=== PATIENT | female | born 2000 | race American Indian/Alaskan Native ===

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

== ENCOUNTER 2019-05-09 14:35 | Emergency (ER) | payer SELFPAY ==
[2019-05-09 15:01] VITALS: BP 117/53
--- NOTE | 2019-05-09 15:53 | Event Note ---
ED Screening Note Date of service: 05/09/19 Time: 15:49 ED Screening Note: 18 y o f presents with chest pain and upper abd pain x 2 days pt also cc of sob, mid sternal pain with radiation to lefta nd right PMH: none, unsure of asthma LMP: 05/05/19 This initial assessment/diagnostic orders/clinical plan/treatment(s) is/are subject to change based on patients health status, clinical progression and re- assessment by fellow clinical providers in the ED. Further treatment and workup at subsequent clinical providers discretion. Patient/guardian urged not to elope from the ED as their condition may be serious if not clinically assessed and managed. Initial orders include: cxr acc eval
[2019-05-09 17:05] LABS: Basophils % (Auto) 0.8 % (0.0-1.8); Eosinophils # (Auto) 0.1 K/mm3 (0.0-0.4); Eosinophils % (Auto) 1.7 % (0.0-4.3); Hematocrit 38.8 % (30.3-42.9); Hemoglobin 12.5 gm/dl (10.1-14.3); Lymphocytes # (Auto) 1.1 K/mm3 (1.2-5.4); Lymphocytes % (Auto) 31.7 % (13.4-35.0); Mean Corpuscular HGB Conc 32 % (30-34); Mean Corpuscular Volume 87 fl (79-97); Monocytes # (Auto) 0.3 K/mm3 (0.0-0.8); Monocytes % (Auto) 7.9 % (0.0-7.3); Platelet Count 195 K/mm3 (140-440); Red Blood Count 4.46 M/mm3 (3.65-5.03); Red Cell Distribution Width 12.6 % (13.2-15.2)
[2019-05-09 17:53] LABS: Alanine Aminotransferase 17 units/L (7-56); Albumin 4.8 g/dL (3.9-5); BUN/Creatinine Ratio 10; Blood Urea Nitrogen 7 mg/dL (7-17); Calcium 10.1 mg/dL (8.4-10.2); Hemolysis Index 14
[2019-05-09] MEDS ORDERED: IBUPROFEN 800 MG TAB PO ONE (19:43)
--- NOTE | 2019-05-09 20:07 | Emergency Department Report ---
ED General Adult HPI - General Chief complaint: Dyspnea/Respdistress Stated complaint: SOB/CHEST PAIN/ABD PAIN Time Seen by Provider: 05/09/19 19:31 Source: patient Mode of arrival: Ambulatory Limitations: No Limitations - History of Present Illness Initial comments: Ms. Pereira is a 18-year-old -[place] female who presents for chest wall pain right flank with intermittent shortness of breath. Patient was treatment for and August of Last year diagnoses UTI. Patient denies cough at this time there is no wheezing, there is no fever ,here is no nausea vomiting, patient denies dysuria no vaginal discharge last menstrual cycle 2 weeks ago. Patient unable to pinpoint pain. However states with inspiration only. States she's not used inhalers in 4-5 months. She denies shortness of breath at this time. Symptoms are exacerbated by activity ,movement , and deep breathing. Symptoms are relieved by rest. Onset/Timin -: days(s) Location: chest, abdomen (right flank) Radiation: non-radiation Severity scale (0 -10): 4 Quality: aching Consistency: intermittent Improves with: rest Worsens with: movement, other (inspiration ) Associated Symptoms: chest pain, shortness of breath. denies: cough, fever/chills, headaches, malaise, nausea/vomiting, rash, syncope, weakness Treatments Prior to Arrival: none - Related Data Previous Rx's Medication Instructions Recorded Last Taken Type Ibuprofen [Motrin 800 MG tab] 800 mg PO Q8HR PRN #30 tablet 05/09/19 Unknown Rx Allergies Allergy/AdvReac Type Severity Reaction Status Date / Time No Known Allergies Allergy Unverified 09/03/18 00:35 ED Review of Systems ROS: Stated complaint: SOB/CHEST PAIN/ABD PAIN Other details as noted in HPI Constitutional: denies: chills, fever Eyes: denies: eye pain, eye discharge, vision change ENT: denies: ear pain, throat pain, congestion Respiratory: shortness of breath. denies: cough, orthopnea, wheezing Cardiovascular: chest pain (right lateral chest wall pain ) Endocrine: no symptoms reported Gastrointestinal: abdominal pain (right flank pain ). denies: nausea, vomiting, diarrhea, constipation, melena Genitourinary: denies: urgency, dysuria, frequency, hematuria, discharge, dyspareunia Musculoskeletal: denies: back pain, joint swelling, arthralgia Skin: denies: rash, lesions Neurological: denies: headache, weakness, paresthesias Psychiatric: denies: anxiety, depression Hematological/Lymphatic: denies: easy bleeding, easy bruising ED Past Medical Hx - Past Medical History Previous Medical History?: No - Surgical History Past Surgical History?: No - Social History Smoking Status: Never Smoker Substance Use Type: Marijuana - Medications Home Medications: Home Medications Medication Instructions Recorded Confirmed Last Taken Type Ibuprofen [Motrin 800 MG tab] 800 mg PO Q8HR PRN #30 tablet 05/09/19 Unknown Rx ED Physical Exam - General Limitations: No Limitations General appearance: alert, in no apparent distress - Head Head exam: Present: atraumatic, normocephalic - Eye Eye exam: Present: normal appearance, PERRL, EOMI Pupils: Present: normal accommodation - ENT ENT exam: Present: normal orophraynx, mucous membranes moist, TM's normal bila terally - Neck Neck exam: Present: normal inspection, full ROM - Respiratory Respiratory exam: Present: normal lung sounds bilaterally, chest wall tenderness. Absent: respiratory distress, wheezes, rales, rhonchi, stridor - Cardiovascular Cardiovascular Exam: Present: regular rate, normal rhythm, normal heart sounds. Absent: systolic murmur, diastolic murmur, rubs, gallop - GI/Abdominal GI/Abdominal exam: Present: soft, normal bowel sounds. Absent: distended, tenderness, bruit, hernia - Rectal Rectal exam: Present: deferred - Extremities Exam Extremities exam: Present: normal inspection, normal capillary refill - Back Exam Back exam: Present: normal inspection, full ROM. Absent: tenderness, CVA tenderness (R), CVA tenderness (L), rash noted - Neurological Exam Neurological exam: Present: alert, oriented X3, CN II-XII intact, normal gait, reflexes normal. Absent: motor sensory deficit - Psychiatric Psychiatric exam: Present: normal affect, normal mood - Skin Skin exam: Present: warm, dry, intact, normal color. Absent: rash ED Course Vital Signs 05/09/19 15:00 Temperature 98.7 F Pulse Rate 76 Respiratory 16 Rate Blood Pressure 117/53 O2 Sat by Pulse 100 Oximetry ED Medical Decision Making - Lab Data Result diagrams: 05/09/19 16:45 05/09/19 16:45 Labs 01/05/09/19 05/09/19 16:45 16:45 20:19 WBC 3.6 L RBC 4.46 Hgb 12.5 Hct 38.8 MCV 87 MCH 28 MCHC 32 RDW 12.6 L Plt Count 195 Lymph % (Auto) 31.7 Green % (Auto) 7.9 H Eos % (Auto) 1.7 Baso % (Auto) 0.8 Lymph # 1.1 L Green # 0.3 Eos # 0.1 Baso # 0.0 Seg Neutrophils % 57.9 Seg Neutrophils # 2.1 Sodium 139 Potassium 4.0 Chloride 100.5 Carbon Dioxide 24 Anion Gap 19 BUN 7 Creatinine 0.7 Estimated GFR > 60 BUN/Creatinine Ratio 10 Glucose 98 Calcium 10.1 Total Bilirubin 0.50 AST 24 ALT 17 Alkaline Phosphatase 50 Total Protein 8.3 H Albumin 4.8 Albumin/Globulin Ratio 1.4 Urine Color Yellow Urine Turbidity Slightly-cloudy Urine pH 7.0 Ur Specific [place] 1.020 Urine Protein <15 mg/dl Urine Glucose (UA) Neg Urine Ketones Neg Urine Blood Neg Urine Nitrite Neg Urine Bilirubin Neg Urine Urobilinogen 2.0 Ur Leukocyte Esterase Neg Urine WBC (Auto) 2.0 Urine RBC (Auto) 3.0 U Epithel Cells (Auto) 12.0 Urine Mucus Few Urine HCG, Qual Negative This time dividable - Radiology Data Radiology results: report reviewed, image reviewed - Medical Decision Making this is flank pain , pt denies , STI symptoms ,. ua; normal, plan: ibuprofen prn pain, vital signs normal, cxr: normal, abd soft nontender, hcg neg. pt will follow up with pcp in 2-3 days. Critical care attestation.: If time is entered above; I have spent that time in minutes in the direct care of this critically ill patient, excluding procedure time. ED Disposition Clinical Impression: Flank pain Disposition: - TO HOME OR SELFCARE Is pt being admited?: No Does the pt Need Aspirin: No (Plan) Condition: Stable Instructions: Flank Pain (ED) Prescriptions: Ibuprofen [Motrin 800 MG tab] 800 mg PO Q8HR PRN #30 tablet PRN Reason: pain Referrals: PRACHI BERMAN MD [Staff Physician] - 3-5 Days Forms: Work/School Release Form(ED) Time of Disposition: 21:55
[2019-05-09 20:52] LABS: Bilirubin,Urine NEG (Negative); Blood,Urine NEG (Negative); Color,Urine Yellow (Yellow); Mucus,Urine FEW /HPF; Protein,Urine <15 mg/dL mg/dL (Negative)
[2019-05-09 21:08] LABS: HCG Qualitative,Urine Negative (Negative)
--- NOTE | 2019-05-09 21:56 | XRay Report ---
CHEST 2 VIEWS INDICATION: chest sob. COMPARISON: None FINDINGS: Support devices: None. Heart: Within normal limits. Lungs: No acute air space or interstitial disease. Pleura: No significant pleural effusion. No pneumothorax. Additional findings: None. IMPRESSION: 1. No acute findings. Signer Name: Maxx Anaya MD Signed: 05/09/2019 9:52 PM Workstation Name: [id number]
== END 2019-05-09 22:08 | disposition home or self-care (01) ==
LOC: ED 14:35
DX: R10.9 Unspecified abdominal pain (principal); R06.02 Shortness of breath; R07.89 Other chest pain; F12.10 Cannabis abuse, uncomplicated
CPT/HCPCS: 36415; 71046; 80053; 81001; 81025; 85025